=== PATIENT | male | born 2000 | race Caucasian/White ===

== ENCOUNTER 2024-10-13 14:56 | Emergency (ER) | payer OTHER, SELFPAY ==
--- NOTE | ~2024-10-13 | CT_ITS ---
CT brain wo con Ordering provider: Lidia Godfrey PA-C History: 24 years Male with . headache, right arm paresthesias . Comparison: None. Technique: CT of the head without contrast. Radiation reduction technique utilized.The dose-length pr oduct was 681 mGy-cm. The FINDINGS: BRAIN PARENCHYMA AND CSF SPACES: No midline shift, mass effect or hemorrhage. The brain parenchyma a nd CSF spaces are otherwise normal. VISUALIZED PARANASAL SINUSES: Left maxillary sinus disease. Otherwise, Well aerated. MASTOIDS: Well aerated. BONES: The bones appear intact. SOFT TISSUES: Visualized nasopharynx is normal. Superficial soft tissues are normal. IMPRESSION: No acute intracranial findings. Reviewed, dictated and finalized at location [facility]. [employer]
[2024-10-13 15:18] VITALS: BP 128/91; PULSE 90; RESP 20; TEMP 36.3; O2SAT 100
--- NOTE | 2024-10-13 17:29 | ED.NEUROSD ---
HPI - Neuro Symptoms/Deficit General Chief Complaint: Allergic Reaction Stated Complaint: TONGUE,FACIAL SWELLING SELF RESOLVED Time Seen by Provider: 10/13/24 17:14 Source: patient Mode of arrival: ambulatory Limitations: no limitations History of Present Illness HPI Narrative: This is a 24-year-old male that presents to the emergency department for right arm paresthesias. Ongoing intermittently over the last several hours. Does report an associated headache. No recent injuries or trauma. Does not report history of migraines or headaches chronically. He has not taken any medication for his pain. Denies vision changes, vomiting, focal numbness or weakness. Related Data Home Medications ?Medication ?Instructions ?Recorded ?Confirmed ?Last Taken ?Type No Home Medications 10/13/24 10/13/24 Unknown History Allergies Allergy/AdvReac Type Severity Reaction Status Date / Time No Known Allergies Allergy Verified 10/13/24 14:58 Review of Systems Review of Systems: CONSTITUTIONAL: Denies fever EYES: Denies visual changes GASTROINTESTINAL: Denies vomiting NEUROLOGIC: Reports headache. Denies numbness, or weakness. All systems reviewed & are unremarkable except as noted in HPI and below PMFSH Past Medical History Medical History (Updated 10/13/24 @ 20:01 by Lidia Godfrey PA-C) No active medical problems Social History Social History (Updated 10/13/24 @ 17:31 by Lidia Godfrey PA-C) Smoking status: Never smoker Substance use: never Exam Narrative: GENERAL: Well-appearing, well-nourished, and in no acute distress. HEAD: Normocephalic, atraumatic. EYES: PERRLA and EOMI. ENT: Nares clear, no rhinorrhea or epistaxis. Mucous membranes moist. Oropharynx without tonsillar hypertrophy exudate or other lesions. Bilateral TMs pearly isaac non-bulging NECK: Supple. No adenopathy or masses. Normal range of motion CHEST: Clear to auscultation. No respiratory distress. No wheezes rales or rhonchi HEART: Regular rate and rhythm. No murmur heard. Normal peripheral pulses. ABDOMEN: Soft, nontender, nondistended, normal active bowel sounds. EXTREMITIES: Normal range of motion. No edema. Strength equal in bilateral upper and lower extremities (5/5) SKIN: Warm, dry, no rash. NEURO: No focal deficits. Alert and oriented x3. Cranial nerves 2-12 grossly intact. Normal gait PSYCH: Normal mood and affect Course Course Emergency Course: patient updated on workup. Reports feeling better, would like to be discharged Vital Signs Vital signs: Vital Signs Temperature 97.4 F L 10/13/24 15:18 Pulse Rate 90 10/13/24 15:18 Respiratory Rate 20 10/13/24 15:18 Blood Pressure 128/91 H 10/13/24 15:18 Pulse Oximetry 100 10/13/24 15:18 Temperature 97.4 F L 10/13/24 15:18 Pulse Rate 90 10/13/24 15:18 Respiratory Rate 20 10/13/24 15:18 Blood Pressure 128/91 H 10/13/24 15:18 Pulse Oximetry 100 10/13/24 15:18 Oxygen Delivery Room Air 10/13/24 17:10 MDM - Neuro Symptoms/Deficit MDM Narrative Medical decision making narrative: Patient presents to the emergency department for intermittent right arm paresthesias, associated with a headache. He is afebrile and nontoxic appearing. He is neurologically intact. He refused an IV, blood work for further evaluation. CT scan of his brain is without acute findings. He reports improvement after Tylenol. Updated on his workup. Resting comfortably. He is to follow up with primary provider. He was given warnings to return to the ER Differential Diagnosis Differential diagnosis: Likely subarachnoid hemorrhage and other (tension headache, migraine) Imaging Data Radiologist's impression: ITS Impressions Head CT 10/13/24 18:41 IMPRESSION: No acute intracranial findings. Critical Care Time Critical Care Time Critical Care Time: No Discharge Plan Discharge Clinical Impression: Paresthesia Headache Qualifiers: Headache type: unspecified Headache chronicity pattern: acute headache Intractability: not intractable Qualified Code(s): R51.9 - Headache, unspecified Patient Disposition: Home, Self-Care Condition: Improved Instructions: Paresthesia (ED), General Headache (ED) Additional Instructions: Return to the emergency department if you experience fever, vision changes, vomiting, weakness, numbness, or any other symptoms that are concerning to you. Rest. Remain well hydrated. Tylenol or ibuprofen as needed for pain Follow up with primary care doctor Patient Language: Estonian Prescriptions: No Action No Home Medications Follow-up/Referrals: PHYSICIAN,CERTIFIED DRUG COUNSELOR [Primary Care Provider] - Rony Montelongo MD [Physician] -
[2024-10-13] MEDS: ACETAMINOPHEN 500 MG TABLET 1000 MG PO (17:42)
--- NOTE | 2024-10-13 17:47 | PC.NURSE ---
pt refused SLN and lab draw reports he does not like needles
--- OUTSIDE RECORDS SUMMARY | 2024-10-13 18:09 | XMS_ITS | Clinical Summary ---
Author Organization 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 Name Role Phone Unavailable Primary Care Provider Unavailabl e Active Problems No known active problems Social History Tobacco Use Types Packs/Day Years Used Date Smoking Tobacco: Never Assessed Sex and Gender Information Value Date Recorded Sex Assigned at Not on file Legal Sex Male 10:37 AM [employer]IT [employer] Gender Identity Not on file Sexual Orientation Not on file Last Filed Vital Signs Vital Sign Reading Time Taken Comments Blood Pressure 116/80 11/20/2022 1:51 PM CDT Pulse - - Temperature - - Respiratory Rate - - Oxygen Saturation - - Inhaled Oxygen Concentration - - Weight 130.2 kg (287 lb) 11/20/2022 1:51 PM CDT Height 190.5 cm (6' 3 ) 11/20/2022 1:51 PM CDT Body Mass Index 35.87 11/20/2022 1:51 PM CDT Plan of Treatment Health Maintenance Due Date Last Done Comments HPV VACCINES (1 - Male 3-dos e series) 2013 DTAP/TDAP/TD VACCINES (1 - Tdap) 2017 HEPATITIS B VACCINES (1 of 3 - 19+ 3-dose series) 2017 INFLUENZA VACCINE (#1) 2024 PNEUMOCOCCAL VACCINE 0-49 YEARS Aged Out No longer eligible based on patient's age to complete this topic Insurance ALLEGIANCE OPEN ACCESS
[2024-10-13 20:07] VITALS: BP 132/82; PULSE 84; RESP 16; O2SAT 99
== END 2024-10-13 20:07 | disposition home or self-care (01) ==
PROVIDERS: Emergency Provider Physician Assistant
DX: R20.2 Paresthesia of skin (principal); R51.9 Headache, unspecified
CPT/HCPCS: 70450; 99284; A9270